=== PATIENT | female | born 1980 | race Caucasian/White ===

== ENCOUNTER 2024-02-04 09:15 | Emergency (ER) | payer OTHER, SELFPAY ==
--- NOTE | ~2024-02-04 | XR_ITS ---
Left Shoulder Technique: AP and scapular Y views were obtained. Clinical History: Pain Findings: No fracture or dislocation is seen. Osseous alignment is anatomic. The glenohumeral and acr omioclavicular joint spaces are preserved. Soft tissues are unremarkable. Impression: Unremarkable left shoulder radiographs. Reviewed, dictated and finalized at [facility]. Impression: Unremarkable left shoulder radiographs.
[2024-02-04 09:25] VITALS: BP 141/77; PULSE 79; RESP 18; TEMP 36.3; O2SAT 99
--- NOTE | 2024-02-04 09:43 | ED.BACK ---
HPI - Back Pain/Injury General Chief Complaint: Back Pain/Injury Stated Complaint: Back Pain/Left Shoulder and Neck Pain Time Seen by Provider: 02/04/24 09:43 Source: patient Mode of arrival: ambulatory Limitations: no limitations History of Present Illness HPI Narrative: 43-year-old female presented for complaint of left shoulder pain after injury at work this morning. She states at 5:00 a.m. she he lifted about 6 crates of tortillas with the left hand. States at that time she felt pain below her shoulder blade, and then about 3 hours later she felt pain to the shoulder. Back pain is improved. Endorses mild intermittent pain radiating to the hand, pulling sensation to the left side, and decreased range of motion posteriorly. Rates pain 3/10 at rest, 6/10 with movements of the shoulder. Pain is constant and dull, but sharp with movement. Denies numbness, tingling or weakness. Patient takes ibuprofen and Tylenol each morning for her feet pain. Related Data Home Medications Medication Instructions Recorded Confirmed aripiprazole 10 mg tablet 10 mg PO DAILY 02/04/24 02/04/24 buspirone 15 mg tablet 15 mg PO BID 02/04/24 02/04/24 trazodone 150 mg tablet 150 mg PO QHS 02/04/24 02/04/24 Allergies Allergy/AdvReac Type Severity Reaction Status Date / Time Sulfa (Sulfonamide Allergy Unknown Unknown Verified 02/04/24 09:44 Antibiotics) Review of Systems Review of Systems: CONSTITUTIONAL: Denies body aches, fever, chills EYES: Denies visual changes CARDIOVASCULAR: Denies chest pain, palpitations, or edema. RESPIRATORY: Denies cough or dyspnea. SKIN: Denies rash, itching, or wounds. MUSCULOSKELETAL: reports left shoulder pain Denies back pain, joint pain, or myalgia. NEUROLOGIC: Denies headache, numbness, tingling, or weakness. All systems reviewed & are unremarkable except as noted in HPI and below PMFSH Comments At time of signature, I have reviewed and agree with nursing past medical, surgical, social and family history unless otherwise noted. Please see nursing chart for further information. There is no relevant family history pertinent to the presenting complaint Exam Narrative: GENERAL: Well-appearing NECK: Supple. Fulll ROM, no VPT. Reports left cervical pain with turning head to right. CHEST: Speaks in full sentences. No respiratory distress. HEART: Regular rate and rhythm. Normal and equal peripheral pulses. EXTREMITIES: Left anterior deltoid and anterior area is tender with palpation. Limited range of motion with posterior movement of the arm, endorses pain with movement. Full ROM with abduction and overhead movement. Hand has normal strength and sensation, No open wounds, or obvious deformity; alignment normal, pulse palpable and equal bilaterally, skin warm, dry, pink. Capillary refill less than 3 seconds. SKIN: Warm, dry, no rash. NEURO: Alert and oriented x3. PSYCH: Normal mood and affect Extrem: Shoulder/upper arm images: 1. area of pain Course Course Emergency Course: Patient is aware of diagnosis, understands and agrees to treatment plan. Anticipatory guidance given. Patient agrees to follow-up as directed and is aware of reasons to seek care at the emergency department. Portions of this record may have been created with voice recognition software Level of Care: Express Care Visit Vital Signs Vital signs: Vital Signs Temperature 97.4 F L 02/04/24 09:25 Pulse Rate 79 02/04/24 09:25 Respiratory Rate 18 02/04/24 09:25 Blood Pressure 141/77 H 02/04/24 09:25 Pulse Oximetry 99 02/04/24 09:25 Oxygen Delivery Room Air 02/04/24 09:25 Temperature 97.4 F L 02/04/24 09:25 Pulse Rate 79 02/04/24 09:25 Respiratory Rate 18 02/04/24 09:25 Blood Pressure 141/77 H 02/04/24 09:25 Pulse Oximetry 99 02/04/24 09:25 Oxygen Delivery Room Air 02/04/24 09:25 Reviewed MDM - Back Pain/Injury MDM Narrative Medical decision making narrative: po
== END 2024-02-04 10:45 | disposition home or self-care (01) ==
PROVIDERS: Emergency Provider Nurse Practitioner Family
DX: M25.512 Pain in left shoulder (principal); Z90.711 Acquired absence of uterus with remaining cervical stump; F41.9 Anxiety disorder, unspecified
CPT/HCPCS: 73030; 99203; G0463